=== PATIENT | female | born 1955 | race Caucasian/White ===

== ENCOUNTER 2023-12-22 08:13 | Day surgery (SDC) | payer OTHER ==
[~2023-12-22] VITALS: Ht 149.9 cm; Wt 46.3 kg
[2023-12-22] MEDS ORDERED: fentaNYL citrate 0.05 MG/ML VIAL ONE (09:08)
[2023-12-22] MEDS ORDERED: MIDAZOLAM 5 MG/5 ML VIAL ONE (09:20)
[2023-12-22] MEDS: MIDAZOLAM 5 MG/5 ML VIAL IV ONE (09:22)
[2023-12-22] MEDS: fentaNYL citrate 0.05 MG/ML VIAL IVP ONE (09:23)
[2023-12-22] MEDS: LIDOCAINE 2% 100 MG/5 ML UJET TP ONE (09:43)
[2023-12-22] MEDS ORDERED: fentaNYL citrate 0.05 MG/ML VIAL IVP ONE (10:05)
== END 2023-12-22 12:05 | disposition home or self-care (01) ==
LOC: MOR 08:13 → MMU 08:13 → MOR 12:05
PROVIDERS: ATTEND Internal Medicine Gastroenterology
DX: K62.5 Hemorrhage of anus and rectum (principal); K63.5 Polyp of colon; K64.4 Residual hemorrhoidal skin tags; I10 Essential (primary) hypertension; E11.9 Type 2 diabetes mellitus without complications; E78.00 Pure hypercholesterolemia, unspecified; Z98.891 History of uterine scar from previous surgery; Z98.890 Other specified postprocedural states
CPT/HCPCS: 45385; 45398; 82948; 88305; J2250; J3010